=== PATIENT | male | born 1950 | race Caucasian/White ===

== ENCOUNTER 2019-10-26 11:14 | Day surgery (SDC) | payer MEDICARE, OTHER, SELFPAY ==
[2019-10-26] MEDS: SODIUM CHLORIDE 0.9% 1,000 ML 200 ML IV (11:56)
[2019-10-26 11:58] VITALS: BP 165/101; PULSE 101; RESP 16; TEMP 36.2; O2SAT 97; BMI 28.5
--- NOTE | 2019-10-26 12:15 | P.HP_ITS ---
History of Present Illness History of Present Illness Date Patient Seen: 10/26/19 Time Patient Seen: 12:15 Chief complaint: [id number] Narrative: This is a 68-year-old man here for screening colonoscopy. He had a colonoscopy more than 30 years ago, and he is not sure the reason for the colonoscopy that he had. He denies any melena, hematochezia, or unexplained weight loss. He had some right lower quadrant pain about 3 months ago, and his primary doctor recommended some dietary changes, which have resolved his pain. He denies any abdominal pain at this point, her any other gastrointestinal symptoms of concern. He denies any significant family history colon cancer colon polyps, and denies any personal history of significant illness. According to his primary doctor's note he has hypertension, has been prescribed lisinopril, but is not taking it. The node also says that he has hyperlipidemia, but is not on medications. Otherwise, he is overweight with a BMI of 28.5. ROS: Thirteen system review is otherwise negative other than as mentioned below and i n HPI. PE: GENERAL: Well groomed and cooperative. Appears stated age. Answers questions promptly and appropriately. Vital signs noted. HENT: Normocephalic, atraumatic. Hearing intact. Oral mucosa is pink and moist. EYES: Conjunctiva pink, sclera white, no periorbital swelling. CARDIOVASCULAR: Regular rate. No pedal edema. RESPIRATORY: Non-tachypneic, breathing comfortably on room air. GASTROINTESTINAL: Abdomen soft and non-distended; nontender GENITALURINARY: No flank tenderness. MUSCULOSKELETAL: Equal tone and mass bilaterally. SKIN: Warm, dry, soft, appropriate color for ethnicity. No other lesions, rashes, or wounds. NEURO: Alert and Oriented X 3. No gross sensory deficits, or cognitive issues. PSYCH: Appropriate affect and mood. Patient History Family & Social History Social History: household members family Meds Home Medications and Allergies Home Medications Medication Instructions Recorded Confirmed Type aspirin 325 mg PO DAILY 10/26/19 10/26/19 History Allergies Allergy/AdvReac Type Severity Reaction Status Date / Time No Known Drug Allergies Allergy Verified 10/26/19 11:50 Exam Vital Signs (past 8 hours): - 10/26/19 11:58 Temperature 97.1 F L Pulse Rate 101 H Respiratory Rate 16 Blood Pressure 165/101 H Pulse Oximetry 97 Oxygen Delivery Method Room Air Assessment & Plan Assessment and plan (1) Encounter for screening colonoscopy: Current visit: Yes Status: Acute (2) At average risk for colon cancer: Current visit: Yes Status: Acute Assessment & Plan narrative: This is a 68-year-old man with no personal or family history of colon polyps or colon cancers. He denies any melena, hematochezia, unexplained weight loss, or unexplained abdominal pain at this time. Risks and benefits of colonoscopy and polypectomy were discussed including risk of bleeding, perforation, need for additional procedures, risks of anesthesia. The patient desires to proceed with his colonoscopy procedure. Time Spent With Patient Time with patient: 15-24 minutes Quality VTE Deep Vein Thrombosis/Pulmonary Embolism Present on Admission: No
--- NOTE | 2019-10-26 13:20 | PM.OP.ENDO ---
Operative Date/Time/Diagnoses Date of procedure: 10/26/19 Time of procedure: 13:20 Pre-op diagnosis: Average risk for colon cancer Post-op diagnosis: same Procedure & Clinicians Study performed: Screening colonoscopy Same procedure as scheduled: Yes Indications: This is a 68-year-old man with history of colonoscopy over 30 years ago for an unknown region. He is here for screening colonoscopy. Surgeon: Lisset Balderas Procedure Notes SCOAP/Timeout: Performed Procedure in detail: The patient was brought to the room and placed in left lateral decubitus position with all bony prominences padded. A time-out was performed and then the patient was given procedural sedation starting with [4] mg of Versed and [100] mcg of fentanyl. Vitals were monitored throughout the procedure and remained stable. Once adequately sedated the procedure was begun. A rectal exam was performed revealing [no abnormalities]. The colonoscope was then introduced to the rectum and advanced to the cecum in the usual fashion. []The cecum was identified by the appendiceal orifice, the mucosal tri-fold, and the ileocecal valve. The scope was then retracted while rotating side to side and examining each mucosal fold. [Mild diverticulosis was found in the sigmoid colon, with a few scattered small mouthed openings.] At the conclusion of the procedure retroflexion was performed and [small grade 1-2 internal hemorrhoids without stigmata of bleeding were seen]. The scope was then withdrawn from the rectum the procedure was concluded. The patient tolerated the procedure well and was transferred to the PACU in stable condition. Scope withdrawal time: 11 Sedation minutes: 18 Findings: diverticulosis and internal hemorrhoids Specimen(s): none sent Complications: none Impression: Mild diverticulosis, low-grade internal hemorrhoids Post-procedure Recommendations: Colonscopy in 10 years Follow up: as needed Disposition: PACU
[2019-10-26] MEDS: fentaNYL 250 MCG/5 ML INJ IV (13:24)
[2019-10-26] MEDS: MIDAZOLAM 5 MG/5 ML VIAL IV (13:25)
[2019-10-26 13:26] VITALS: BP 139/89; PULSE 82; RESP 16; TEMP 36.6; O2SAT 96
[2019-10-26 13:31] VITALS: BP 120/83; PULSE 89; RESP 14; O2SAT 97
[2019-10-26 13:36] VITALS: BP 123/84; PULSE 82; RESP 21; TEMP 36.4; O2SAT 96
[2019-10-26 14:00] VITALS: BP 145/85; PULSE 78; RESP 20; TEMP 36.6; O2SAT 98
== END 2019-10-26 13:50 | disposition home or self-care (01) ==
PROVIDERS: Visit Provider Surgery
PROC: 0DJD8ZZ Inspection of Lower Intestinal Tract, Via Natural or Artificial Opening Endoscopic (ICD-10-PCS; CPT 45378; principal; 2019-10-26 13:00)
DX: Z12.11 Encounter for screening for malignant neoplasm of colon (principal); K64.0 First degree hemorrhoids; K57.30 Diverticulosis of large intestine without perforation or abscess without bleeding
CPT/HCPCS: G0121; 99152; J2250; J3010

== ENCOUNTER 2020-03-02 22:29 | Emergency (ER) | payer MEDICARE, OTHER, SELFPAY ==
[2020-03-02] MEDS: BUPIVACAINE 0.5% W/ EPI (PF) 30 ML VIAL 5 ML SUBCUT (22:41)
[2020-03-02 22:42] VITALS: BP 183/106; PULSE 87; RESP 15; TEMP 36.6; O2SAT 98; BMI 29.8
[2020-03-02] MEDS: cephALEXin 250 MG PREPACK 1 BOTTLE MISC (22:42)
--- NOTE | 2020-03-02 23:00 | PC.NURSE ---
[address] Richard to L forearm, telfa and gauze dressing applied.
[2020-03-02 23:06] VITALS: BP 166/101; PULSE 93; RESP 16; O2SAT 97
--- NOTE | 2020-03-02 23:07 | ED.WOUNDLAC ---
HPI - Wound/Laceration General Chief Complaint: Wound/Laceration Stated Complaint: cut on left arm/needs stitches Time Seen by Provider: 03/02/20 22:31 Source: patient Mode of arrival: Family Vehicle Limitations: no limitations History of Present Illness HPI narrative: 69-year-old male nonsmoker occasionally drinks and occasionally uses THC presents with a chief complaint of an accidental deep laceration to the dorsal side of his left forearm. He states that he was carrying sheet metal when he lost his balance and fell and it fell on his arm and causes laceration. He cleaned it significantly on-site including Betadine. He has no numbness, tingling or weakness. His tetanus was updated 2 years ago. He denies any head neck or back pain. He is otherwise well and free of complaint Onset (ago): hour(s) Extremity Location: Left: forearm Body four view annotation: 1. Place: home Patient tetanus UTD: Yes Context: accidental Associated symptoms: none Treatments prior to arrival: bandage Related Data Home Medications Medication Instructions Recorded Confirmed aspirin 325 mg PO DAILY 10/26/19 10/26/19 Previous Rx's Medication Instructions Recorded cephalexin [Keflex] 500 mg PO QID 7 Days #28 cap 03/02/20 Allergies Allergy/AdvReac Type Severity Reaction Status Date / Time No Known Drug Allergies Allergy Verified 10/26/19 11:50 Review of Systems Constitutional Constitutional: Denies chills, Denies fatigue, Denies fever(s), Denies frequent falls, Denies lethargy and Denies weakness Eyes Eyes: Denies change in vision, Denies eye discharge, Denies irritation and Denies loss of vision ENT Ears, Nose, Mouth, and Throat: Denies change in voice, Denies dizziness, Denies neck pain, Denies sore throat and Denies throat swelling Cardiovascular Cardiovascular: Denies chest pain, Denies irregular heart rhythm, Denies lightheadedness, Denies palpitations, Denies dyspnea, Denies dyspnea on exertion and Denies orthopnea Respiratory Respiratory: Denies cough, Denies dyspnea, Denies dyspnea on exertion and Denies wheezing Gastrointestinal Gastrointestinal: Denies abdominal pain, Denies change in bowel habits, Denies diarrhea, Denies nausea and Denies vomiting Genitourinary Genitourinary: Denies hematuria, Denies flank pain, Denies urinary incontinence and Denies urinary urgency Musculoskeletal Musculoskeletal: Denies back pain, Denies muscle weakness, Denies neck pain, Denies numbness and Denies tingling Integumentary/Breasts Skin/Breast: Denies pruritus, Denies erythema, Denies rash and Reports wounds Neurologic Neurologic: Denies behavioral changes, Denies confusion, Denies dizziness, Denies frequent falls, Denies loss of vision, Denies numbness, Denies tingling and Denies weakness Psychiatric Psychiatric: Denies anxiety, Denies behavioral changes, Denies confusion, Denies depression, Denies homicidal ideation and Denies suicidal ideation Endocrine Endocrine: Denies fatigue, Denies flushing and Denies palpitations Hematologic/Lymphatic Hematologic/Lymphatic: Denies easy bruising Allergic/Immunologic Allergic/Immunologic: Denies urticaria, Denies throat swelling and Denies wheezing Patient History Social History household members: family alcohol intake frequency: a few times a month Substance Use Type: marijuana Exam Narrative Exam Narrative: GEN: AOx3 and in mild distress EYES: Pupils are equal, round, and reactive to light and accommodation. Extraoccular muscles are intact bilaterally. There is no subconjunctival hemorrhage or exudate. CHEST: Lungs are clear to auscultation bilaterally and free of wheezes, rales, or rhonchi. Heart rate is regular rhythm, there are no murmurs, clicks, rubs, or gallops. There is no chest wall tenderness. ABD: Abdomen is soft and nontender. There is no guarding or rebound. Bowel sounds are normal in all 4 quadrants. There is no mass or organomegaly. EXT: Full painless ROM of all extremities with no loss of sensation or strength. SKIN: 8cm deep laceration without active bleeding, deep structures in tact, no FB on dorsum of L forearm. Second smaller 2cm laceration just proximal. Otherwise warm, pink, and dry. No erythema or rash Initial Vital Signs Initial Vital Signs: Vital Signs Temperature 97.8 F 03/02/20 22:42 Pulse Rate 87 03/02/20 22:42 Respiratory Rate 15 03/02/20 22:42 Blood Pressure 183/106 H 03/02/20 22:42 Pulse Oximetry 98 03/02/20 22:42 Procedures Laceration Repair Laceration 1: Site: upper extremity Side (If applicable): left Size (cm): 8 Description: linear Depth: involves muscle layer Local Anesthetic: bupivacaine 0.25% and with epi Amount of anesthesia used (mL): 8 Pre-repair: wound explored, irrigated extensively and deep structures intact Skin layer closed with: nylon Size (cm): 4-0 Number of sutures: 10 Technique: simple, interrupted Subcutaneous layer closed with: vicryl Size: 4-0 Number of sutures: 3 Technique: simple, interrupted Course Orders Ordered: Discontinued Medications Bupivacaine HCl/Epinephrine Bitart (Sensorcaine 0.5% W/ Epi (Pf)) 5 ml SUBCUT NOW ONE Stop: 03/02/20 22:37 Last Admin: 03/02/20 22:41 Dose: 5 ml Documented by: [email or web address] Cefazolin Sodium (Keflex 250 Mg Prepack) 1 bottle MISC SEEINSTR ONE Stop: 03/02/20 22:37 Last Admin: 03/02/20 22:42 Dose: 1 bottle Documented by: [email or web address] Vital Signs Vital signs: Vital Signs - 8 hr 03/02/20 22:42 03/02/20 23:06 Temperature 97.8 F Pulse Rate 87 93 H Respiratory Rate 15 16 Blood Pressure 183/106 H 166/101 H Pulse Oximetry 98 97 Discharge Plan Departure Patient Disposition: Home Clinical Impression: Laceration of arm, left, complicated Qualifiers: Encounter type: initial encounter Qualified Code(s): S41.112A - Laceration without foreign body of left upper arm, initial encounter Discharge Date/Time: 03/02/20 23:06 Instructions: DI for Laceration Repair -- Complex Activity Restrictions/Additional Instructions: Please keep the wound clean and dry to the best of your ability. Please monitor for signs of infection such as redness to the skin or increasing pain. Have the sutures removed by your doctor in about 7 days. If you are unable to get into your doctor, we would be happy to remove the sutures in that same timeframe. Prescriptions: New cephalexin [Keflex] 500 mg capsule 500 mg PO QID 7 Days Qty: 28 RF: 0 No Action aspirin 325 mg Tablet 325 mg PO DAILY RF: 0 Referrals: Mayur Hall MD [Primary Care Provider] -
== END 2020-03-02 23:06 | disposition home or self-care (01) ==
PROVIDERS: Emergency Provider Emergency Medicine; PCP Family Medicine
DX: S41.112A Laceration without foreign body of left upper arm, initial encounter (principal); W26.8XXA Contact with other sharp object(s), not elsewhere classified, initial encounter
CPT/HCPCS: 13121; 13122; 99281; 99283

== ENCOUNTER 2023-01-24 14:29 | Emergency (ER) | payer MEDICARE, OTHER, SELFPAY ==
[2023-01-24 14:54] VITALS: BP 176/100; PULSE 94; RESP 18; TEMP 36.9; O2SAT 96; BMI 31.1
[2023-01-24 15:19] LABS: Add Manual Diff / Slide Review NO; Basophils Absolute Auto 0 /uL (0-100); Basophils Percent Auto 0.3 % (0-2); Eosinophils Absolute Auto 100 /uL (0-450); Eosinophils Percent Auto 0.4 % (2-4); Hematocrit 43.6 % (41-53); Lymphocytes Absolute Auto 1700 /uL (1100-4500); Lymphocytes Percent Auto 13.4 % (25-40); Mean Corpuscular HGB Conc 34.3 % (30-36); Mean Corpuscular Hemoglobin 31.4 PG (26-34); Mean Corpuscular Volume 91.4 fL (80-100); Monocytes Absolute Auto 900 /uL (0-900); Monocytes Percent Auto 7.2 % (3-14); Neutrophils Absolute Auto 9900 /uL (1500-7000); Neutrophils Percent Auto 78.7 % (50-75); Platelet Count 322 X10^3/uL (150-400); Red Blood Cell Count 4.77 X10^6/uL (4.5-5.9); Red Cell Distribution Width 13.5 % (11.6-14.8); White Blood Cell Count 12.6 X10^3/uL (4.5-11.0)
[2023-01-24 15:33] LABS: Alanine Aminotransferase 23 IU/L (<50); Albumin 4.3 g/dL (3.5-5.0); Albumin Globulin Ratio 1.2 (1.0-2.8); Alkaline Phosphatase 77 U/L (38-126); Aspartate Aminotransferase 22 IU/L (17-59); BUN Creatinine Ratio 16.7 (6-22); Bilirubin Total 0.4 mg/dL (0.2-1.3); Blood Urea Nitrogen 11 mg/dL (9-20); Calcium 8.9 mg/dL (8.4-10.2); Carbon Dioxide 24 mmol/L (22-32); Chloride 99 mmol/L (98-107); Estimated Glomerular Filt Rate > 60 mL/min (>60); Globulin 3.5 g/dL (1.7-4.1); Glucose 107 mg/dL (80-110); HEMOLYSIS < 15 (0-50); Lipase 233 U/L (23-300); Potassium 4.1 mmol/L (3.4-5.1); Sodium 134 mmol/L (137-145); Total Protein 7.8 g/dL (6.3-8.2)
--- NOTE | 2023-01-24 16:28 | DI.CT.S_ITS ---
PROCEDURE: CT KIDNEY URETER BLADDER (KUB) INDICATIONS: lumbar Radiculopathy vs nephrolith, hx diskectomy L4-L5 TECHNIQUE: Axial sections were acquired from the lung bases to the pubic symphysis. Coronal and sagittal reformats were performed. For radiation dose reduction, the following was used: automated exposure control, adjustment of mA and/or kV according to patient size. COMPARISON: None. FINDINGS: Image quality: Excellent. Lung bases: Unremarkable. Heart: No significant findings. URINARY: Right Kidney: No stones or hydronephrosis. Right Ureter: No hydroureter. Left Kidney: No stones or hydronephrosis. Left Ureter: No hydroureter. Bladder: Bladder is distended. Normal wall thickness. No stones. Prostate is enlarged. ABDOMEN: Liver: There are several indeterminate hepatic hypodensities. Gallbladder: Unremarkable. Biliary ducts: Unremarkable. Pancreas: Unremarkable. Spleen: Unremarkable. Adrenal Glands: Unremarkable. Stomach and Bowel: Stomach, small bowel loops, and colon are normal in caliber. Diverticulosis without acute diverticulitis. Normal appendix. Peritoneum: No abnormal intraperitoneal fluid. No free air. Ventral Wall: Tiny fat containing umbilical hernia. Abdominal Nodes: No enlarged retroperitoneal or mesenteric lymph nodes. Vessels: Aorta and inferior vena cava are normal in size. PELVIS: Pelvic Organs: Unremarkable. Pelvic Nodes: Unremarkable. Miscellaneous: Fat containing inguinal hernias are seen. Bones: No fractures. There is degenerative disc disease, moderate at L4-L5, and mild at other levels. Moderate facet arthropathy at L5-S1 on the left. IMPRESSION: 1. No renal stone or hydronephrosis. 2. Bladder is distended. 3. Prostate is enlarged. 4. Diverticulosis without diverticulitis. 5. Degenerative disc and facet disease in lumbar spine. 6. Multiple indeterminate hepatic hypodensities are most likely cysts. Consider ultrasound follow-up. 7. Fat containing inguinal hernias bilaterally. Dictated by: Karmen Constantino M.D. on 01/24/2023 at 16:54 Approved by: Karmen Constantino M.D. on 01/24/2023 at 16:58
--- NOTE | 2023-01-24 16:31 | ED.MALEGU ---
HPI - Male Genitourinary <JOSE Johnson - Last Filed: 01/24/23 17:12> General Chief complaint: Urogenital-Male Stated complaint: pain in kidney area getting worse Time Seen by Provider: 01/24/23 15:59 Source: patient Mode of arrival: Ambulatory History of Present Illness HPI Narrative: 72-year-old male who presents to the emergency department complaining left low back pain above his left iliac crest, states it feels like prior radiculopathy but worse. Is concerned about his kidney. Denies any urinary urgency, retention or incontinence. 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 He states he is not had any radiculopathy symptoms before. Endorses drinking approximately 3 beers a day. He is a nonsmoker and occasionally uses marijuana. Denies any fevers, chills, nausea vomiting, bowel changes. States he is not had a bowel movement today but denies any groin paresthesia. He denies any weakness, denies any sensation changes. Related Data Home Medications Medication Instructions Recorded Confirmed aspirin 325 mg tablet 325 mg PO DAILY 10/26/19 10/26/19 Previous Rx's Medication Instructions Recorded hydrocodone 5 mg-acetaminophen 325 1 tab PO TID PRN pain #10 tabs 01/24/23 mg tablet lidocaine 5 % topical patch 1 patch topical DAILY PRN pain #30 01/24/23 (Lidoderm) ea methocarbamol 750 mg tablet 750 mg PO Q8H PRN spasms #20 tabs 01/24/23 prednisone 20 mg tablet 20 mg PO DAILY 4 days #4 tabs 01/24/23 Allergies Allergy/AdvReac Type Severity Reaction Status Date / Time Jcgbiyd-AAL-YnR Reductase Allergy Hives Verified 01/24/23 15:01 Inhibitor Review of Systems <JOSE Johnson - Last Filed: 01/24/23 17:12> Review of Systems ROS Unobtainable: All systems reviewed & are unremarkable except as noted in HPI and below Patient History <JOSE Johnson - Last Filed: 01/24/23 17:12> Social History household members: family Smoking Status: Never smoker Smoking Status: Never smoker alcohol intake frequency: 3 or more drinks per day Alcohol type: beer Substance Use Type: marijuana Exam <JOSE Johnson - Last Filed: 01/24/23 17:12> Narrative Exam Narrative: Reviewed vitals signs and nursing notes. General: Pleasant, sitting upright, in no acute distress, well groomed, afebrile HEENT: symmetrical facial expressions, moist mucous membranes, neck is supple CV: regular rate and rhythm, warm extremities Respiratory: normal work of breathing, without tachypnea or hypoxia. GI: abdomen soft, nondistended, without CVA tenderness bilaterally. MSK: moves all extremities, no weakness, normal tone, ambulatory without deficit, patient complains of pain to his left lower lumbar musculature just above his iliac crest, nontender to palpation, this is most likely radiculopathy, no CVA tenderness bilaterally, no suprapubic tenderness, patient has rectal tone, is having muscle spasms occasionally. Skin: brisk capillary refill, without rash or wound Neuro: normal speech and cognition, A&O x3 Initial Vital Signs Initial Vital Signs: Vital Signs Temperature 98.5 F 01/24/23 14:54 Pulse Rate 94 H 01/24/23 14:54 Respiratory Rate 18 01/24/23 14:54 Blood Pressure 176/100 H 01/24/23 14:54 Pulse Oximetry 96 01/24/23 14:54 Oxygen Delivery Method Room Air 01/24/23 14:54 GI Other: Abdomen is soft, nontender to palpation, distended but at baseline, without CVA tenderness bilaterally, no suprapubic tenderness, no radiation of the pain, Back/Spine/Pelvis Other: BACK: captain cannery tender but free of any obvious external abnormalities. Patient exam notes decreased range of motion and muscle spasm, but no CVA tenderness, or vertebral point tenderness. There are no symptoms of cauda equina such as saddle anesthesia, and decreased reflexes, decreased sensation or strength. Midline lumbar spine is nontender to palpation <Chin Mcleod DO - Last Filed: 01/24/23 16:54> Initial Vital Signs Initial Vital Signs: Vital Signs Temperature 98.5 F 01/24/23 14:54 Pulse Rate 94 H 01/24/23 14:54 Respiratory Rate 18 01/24/23 14:54 Blood Pressure 176/100 H 01/24/23 14:54 Pulse Oximetry 96 01/24/23 14:54 Oxygen Delivery Method Room Air 01/24/23 14:54 Course <JOSE Johnson - Last Filed: 01/24/23 17:12> Orders Ordered: ED Orders 01/24/23 15:05 Complete Blood Count AUTO DIFF Stat Comprehensive Metabolic Panel Stat Lipase Stat 01/24/23 15:48 EKG-12 Lead Stat 01/24/23 16:00 Urine Microscopic Stat 01/24/23 16:28 CT kidney ureter bladder (KUB) Stat 01/24/23 17:00 Urine Culture Stat Discontinued Medications Hydrocodone Bitart/Acetaminophen (Hydrocodone/Acet 5/325 Tablet) 1 tab PO NOW ONE Stop: 01/24/23 16:31 Hydrocodone Bitart/Acetaminophen (Hydrocodone/Acet 5/325 Prepack) 1 bottle MISC SEEINSTR ONE Stop: 01/24/23 17:10 Cyclobenzaprine HCl (Cyclobenzaprine 10 Mg Prepack) 1 bottle MISC SEEINSTR ONE Stop: 01/24/23 17:10 Ketorolac Tromethamine (Ketorolac 30 Mg/Ml Vial) 30 mg IM NOW ONE Stop: 01/24/23 16:31 Lidocaine (Lidocaine Patch 1 Each Adh..Patch) 1 each TOP NOW ONE Stop: 01/24/23 16:31 Methocarbamol (Methocarbamol 500 Mg Tablet) 750 mg PO NOW ONE Stop: 01/24/23 16:31 Prednisone (Prednisone 20 Mg Tablet) 20 mg PO NOW ONE Stop: 01/24/23 16:31 Vital Signs Vital signs: Vital Signs - 8 hr 01/24/23 14:54 Temperature 98.5 F Pulse Rate 94 H Respiratory Rate 18 Blood Pressure 176/100 H Pulse Oximetry 96 Oxygen Delivery Method Room Air <Chin Mcleod DO - Last Filed: 01/24/23 16:54> Orders Ordered: ED Orders 01/24/23 15:05 Complete Blood Count AUTO DIFF Stat Comprehensive Metabolic Panel Stat Lipase Stat 01/24/23 15:48 EKG-12 Lead Stat 01/24/23 16:00 Urine Microscopic Stat 01/24/23 16:28 CT kidney ureter bladder (KUB) Stat 01/24/23 17:00 Urine Culture Stat Discontinued Medications Hydrocodone Bitart/Acetaminophen (Hydrocodone/Acet 5/325 Tablet) 1 tab PO NOW ONE Stop: 01/24/23 16:31 Hydrocodone Bitart/Acetaminophen (Hydrocodone/Acet 5/325 Prepack) 1 bottle MISC SEEINSTR ONE Stop: 01/24/23 17:10 Cyclobenzaprine HCl (Cyclobenzaprine 10 Mg Prepack) 1 bottle MISC SEEINSTR ONE Stop: 01/24/23 17:10 Ketorolac Tromethamine (Ketorolac 30 Mg/Ml Vial) 30 mg IM NOW ONE Stop: 01/24/23 16:31 Lidocaine (Lidocaine Patch 1 Each Adh..Patch) 1 each TOP NOW ONE Stop: 01/24/23 16:31 Methocarbamol (Methocarbamol 500 Mg Tablet) 750 mg PO NOW ONE Stop: 01/24/23 16:31 Prednisone (Prednisone 20 Mg Tablet) 20 mg PO NOW ONE Stop: 01/24/23 16:31 Vital Signs Vital signs: Vital Signs - 8 hr 01/24/23 14:54 Temperature 98.5 F Pulse Rate 94 H Respiratory Rate 18 Blood Pressure 176/100 H Pulse Oximetry 96 Oxygen Delivery Method Room Air MDM - Male Genitourinary <Nikky Trevizo KENO MANAGER - Last Filed: 01/24/23 17:12> Lab Data 01/24/23 15:05 01/24/23 15:05 Labs: Lab Results 01/24/23 01/24/23 Range/Units 15:05 15:05 WBC 12.6 H (4.5-11.0) X10^3/uL RBC 4.77 (4.5-5.9) X10^6/uL Hgb 15.0 (13.5-17.5) g/dL Hct 43.6 (41-53) % MCV 91.4 (80-100) fL MCH 31.4 (26-34) PG MCHC 34.3 (30-36) % RDW 13.5 (11.6-14.8) % Plt Count 322 (150-400) X10^3/uL Neut % (Auto) 78.7 H (50-75) % Lymph % (Auto) 13.4 L (25-40) % [place] % (Auto) 7.2 (3-14) % Eos % (Auto) 0.4 L (2-4) % Baso % (Auto) 0.3 (0-2) % Neut # (Auto) 9900 H (6394-1826) /uL Lymph # (Auto) 1700 (3369-9881) /uL [place] # (Auto) 900 (0-900) /uL Eos # (Auto) 100 (0-450) /uL Baso # (Auto) 0 (0-100) /uL Sodium 134 L (137-145) mmol/L Potassium 4.1 (3.4-5.1) mmol/L Chloride 99 (98-107) mmol/L Carbon Dioxide 24 (22-32) mmol/L BUN 11 (9-20) mg/dL Creatinine 0.66 (0.66-1.25) mg/dL Estimated GFR > 60 (>60) mL/min BUN/Creatinine Ratio 16.7 (6-22) Glucose 107 (80-110) mg/dL Calcium 8.9 (8.4-10.2) mg/dL Total Bilirubin 0.4 (0.2-1.3) mg/dL AST 22 (17-59) IU/L ALT 23 (<50) IU/L Alkaline Phosphatase 77 (38-126) U/L Total Protein 7.8 (6.3-8.2) g/dL Albumin 4.3 (3.5-5.0) g/dL Globulin 3.5 (1.7-4.1) g/dL Albumin/Globulin Ratio 1.2 (1.0-2.8) Lipase 233 (23-300) U/L Urine Dip Bedside Urine Glucose Negative Bedside Urine Bilirubin - Negative Bedside Urine Ketone +/- 5 Urine Specific [place] 1.010 Bedside Urine Occult Blood - Negative Bedside Urine pH 6.0 Bedside Urine Protein - Negative Bedside Urine Urobilinogen +/- 1mg Bedside Urine Nitrite - Negative Bedside Urine Leukocytes - Negative Esterase Imaging Data CT scan - abdomen/pelvis: Radiologist's Impression: PROCEDURE:? CT KIDNEY URETER BLADDER (KUB) ? INDICATIONS:? lumbar Radiculopathy vs nephrolith, hx diskectomy L4-L5 ? TECHNIQUE:? Axial sections were acquired from the lung bases to the pubic symphysis.? Coronal and sagittal reformats were performed.? For radiation dose reduction, the following was used: ?automated exposure control, adjustment of mA and/or kV according to patient size.? ? COMPARISON:? None. ? FINDINGS:? Image quality:? Excellent.? ? Lung bases:? Unremarkable.? ? Heart:? No significant findings. ? URINARY: Right Kidney: ? No stones or hydronephrosis.? Right Ureter:? No hydroureter.? ? Left Kidney: ? No stones or hydronephrosis. Left Ureter:? No hydroureter.? ? Bladder:? Bladder is distended.? Normal wall thickness. No stones.? Prostate is enlarged. ? ABDOMEN: Liver:? There are several indeterminate hepatic hypodensities.? ? Gallbladder:? Unremarkable.? ? Biliary ducts:? Unremarkable.? ? Pancreas:? Unremarkable.? ? Spleen:? Unremarkable.? ? Adrenal Glands:? Unremarkable.? ? ? Stomach and Bowel:? Stomach, small bowel loops, and colon are normal in caliber.? Diverticulosis without acute diverticulitis.? Normal appendix. Peritoneum:? No abnormal intraperitoneal fluid.? No free air.? ? Ventral Wall: ? Tiny fat containing umbilical hernia.? Abdominal Nodes:? No enlarged retroperitoneal or mesenteric lymph nodes.? Vessels:? Aorta and inferior vena cava are normal in size.? ? PELVIS: Pelvic Organs:? Unremarkable.? ? Pelvic Nodes: Unremarkable. Miscellaneous:? Fat containing inguinal hernias are seen. ? ? ? Bones:? No fractures.? There is degenerative disc disease, moderate at L4-L5, and mild at other levels.? Moderate facet arthropathy at L5-S1 on the left. ? IMPRESSION:? ? 1. No renal stone or hydronephrosis. 2. Bladder is distended.? 3. Prostate is enlarged. 4. Diverticulosis without diverticulitis. 5. Degenerative disc and facet disease in lumbar spine. 6. Multiple indeterminate hepatic hypodensities are most likely cysts.? Consider ultrasound follow-up. 7. Fat containing inguinal hernias bilaterally.? Dictated by: Karmen Constantino M.D. on 01/24/2023 at 16:54 ? ? Approved by: Karmen Constantino M.D. on 01/24/2023 at 16:58 ? MDM Narrative Medical decision making narrative: Chief Complaint: Low back pain, concern for kidney pain Multiple etiologies for patient's symptoms considered including, but not limited to: Lumbar radiculopathy, nephrolithiasis, pyelonephritis, urinary retention, cauda equina, nerve compression syndrome, I have independently reviewed the patient's vital signs and nursing notes as well as prior records if available. Pertinent records include: Pertinent lab findings reviewed: UA negative for abnormality, mild leukocytosis of 12.6, hemoconcentration, left shift, no electrolyte abnormalities, normal creatinine and GFR, lipase is normal, normal transaminases and liver enzymes. Pertinent Imaging reviewed: CT KUB with bone windows show degenerative joint disease and facet disease of his lumbar spine without acute abnormality, no nephrolithiasis or pyelonephritis only abnormal finding for patient was enlarged prostate but he does urinary retention as he was able to fully void his distended bladder after CT. Course of care: Patient's pain was treated with lidocaine patch, Toradol, hydrocodone, prednisone and methocarbamol [address] Patient's pain was treated with hydrocodone, Toradol, lidocaine patch and methocarbamol with prednisone. He understands that this is most likely lumbar radiculopathy and states playing some point in his time. He will follow-up with his PCP and or manufacture specialist as needed, I gave him contact information for spinal living specialist here in [place]. He lives on [facility], was given pain control for the weekend encouraged to follow-up with his primary care provider. Who is can course of methocarbamol, lidocaine patches, hydrocodone, prednisone. Social considerations that may affect disposition: none Questions are addressed and there is agreement with the plan and for follow-up. Patient is appropriate for outpatient management. <Chin Mcleod, DO - Last Filed: 01/24/23 16:54> Lab Data Labs: Lab Results 01/24/23 01/24/23 Range/Units 15:05 15:05 WBC 12.6 H (4.5-11.0) X10^3/uL RBC 4.77 (4.5-5.9) X10^6/uL Hgb 15.0 (13.5-17.5) g/dL Hct 43.6 (41-53) % MCV 91.4 (80-100) fL MCH 31.4 (26-34) PG MCHC 34.3 (30-36) % RDW 13.5 (11.6-14.8) % Plt Count 322 (150-400) X10^3/uL Neut % (Auto) 78.7 H (50-75) % Lymph % (Auto) 13.4 L (25-40) % [place] % (Auto) 7.2 (3-14) % Eos % (Auto) 0.4 L (2-4) % Baso % (Auto) 0.3 (0-2) % Neut # (Auto) 9900 H (9864-1507) /uL Lymph # (Auto) 1700 (0764-9001) /uL [place] # (Auto) 900 (0-900) /uL Eos # (Auto) 100 (0-450) /uL Baso # (Auto) 0 (0-100) /uL Sodium 134 L (137-145) mmol/L Potassium 4.1 (3.4-5.1) mmol/L Chloride 99 (98-107) mmol/L Carbon Dioxide 24 (22-32) mmol/L BUN 11 (9-20) mg/dL Creatinine 0.66 (0.66-1.25) mg/dL Estimated GFR > 60 (>60) mL/min BUN/Creatinine Ratio 16.7 (6-22) Glucose 107 (80-110) mg/dL Calcium 8.9 (8.4-10.2) mg/dL Total Bilirubin 0.4 (0.2-1.3) mg/dL AST 22 (17-59) IU/L ALT 23 (<50) IU/L Alkaline Phosphatase 77 (38-126) U/L Total Protein 7.8 (6.3-8.2) g/dL Albumin 4.3 (3.5-5.0) g/dL Globulin 3.5 (1.7-4.1) g/dL Albumin/Globulin Ratio 1.2 (1.0-2.8) Lipase 233 (23-300) U/L Urine Dip Bedside Urine Glucose Negative Bedside Urine Bilirubin - Negative Bedside Urine Ketone +/- 5 Urine Specific [place] 1.010 Bedside Urine Occult Blood - Negative Bedside Urine pH 6.0 Bedside Urine Protein - Negative Bedside Urine Urobilinogen +/- 1mg Bedside Urine Nitrite - Negative Bedside Urine Leukocytes - Negative Esterase Discharge Plan Departure Patient Disposition: Home Clinical Impression: Acute lumbar radiculopathy, Degenerative disc disease, lumbar, Enlarged prostate, Facet joint disease of lumbosacral region Instructions: Lumbar Radiculopathy Activity Restrictions/Additional Instructions: *You have been diagnosed with lumbar radiculopathy which is nerve pain from your low back and going to your hip. You do have degenerative joint disease but no acute findings of anything dangerous in your spine. This is good, should calm down. Please continue with ibuprofen every 8 hours with food and water, a pain pill, lidocaine patch, muscle relaxer and daily for the next 4 days. I sent all these medications to [facility]. Please use the medications I have sent home with you to get through tonight, pear picker your medicines tomorrow. I hope you feel better soon, it was a pleasure to meet you both, return for new or worsening symptoms. *What to do: *Please continue to take your regular medications as directed. [x ] New medication prescriptions sent to your pharmacy: [[facility] ] [ ] New medication written as a paper prescription [ ] No new medications given *Please follow up with your primary care provider in 2-3 days, call for an appointment. Let them know you were seen in the Emergency Department and that we asked that you be seen for follow-up. We will electronically transmit a record of today's note if your PCP is in our system *If you do not have a primary care provider please contact [phone] to establish care with one of [facility] primary care providers. *Return to Emergency Department if you should have any new, worsening, or concerning symptoms, such as [fever greater than 101F, chills, worsening pain, persistent vomiting or other bothersome symptoms]. Prescriptions: New methocarbamol 750 mg tablet 750 mg PO Q8H PRN (Reason: spasms) Qty: 20 0RF lidocaine [Lidoderm] 5 % adhesive patch,medicated 1 patch topical DAILY PRN (Reason: pain) Qty: 30 0RF Rx Instructions: leave on most painful area for up to 12 hrs prednisone 20 mg tablet 20 mg PO DAILY 4 Days Qty: 4 0RF hydrocodone-acetaminophen 5-325 mg tablet 1 tab PO TID PRN (Reason: pain) Qty: 10 0RF No Action aspirin 325 mg Tablet 325 mg PO DAILY Referrals: Curry Zayas MD [Physician] - Miscellaneous,MD Karrie [Primary Care Provider] - Stand Alone Forms: Patient Portal/API <Chin Mcleod DO - Last Filed: 01/24/23 16:54> Cosign ED Attending Cosignature Attestation: Dr Mcleod Co-Sign Statement: I was available for consultation during this patient's emergency department visit. This chart is signed by myself for administrative purposes only. I did not have direct contact with this patient during this visit. They were seen independently by the APC.
[2023-01-24] MEDS: methocarbamoL 500 MG TABLET 750 MG PO (17:11)
[2023-01-24] MEDS: predniSONE 20 MG TABLET PO (17:12)
[2023-01-24] MEDS: HYDROCODONE/ACET 5/325 TABLET 1 TAB PO (17:12)
[2023-01-24] MEDS: KETOROLAC 30 MG/ML VIAL IM (17:30)
[2023-01-24] MEDS: LIDOCAINE PATCH 1 EACH ADH..PATCH TOP (17:32)
[2023-01-24] MEDS: TAMSULOSIN 0.4 MG CAPSULE PO (17:33)
[2023-01-24] MEDS: HYDROCODONE/ACET 5/325 PREPACK 1 BOTTLE MISC (17:34)
[2023-01-24] MEDS: CYCLOBENZAPRINE 10 MG PREPACK 1 BOTTLE MISC (17:35)
[2023-01-24 17:45] VITALS: BP 145/76; PULSE 77; RESP 17; O2SAT 98
[2023-01-24 18:53] LABS: Bacteria Urine None Seen; Culture Indicated Urine Cult Not Indicated; RBC Urine None Seen (0-5/HPF); WBC Urine None Seen (0-5/HPF)
== END 2023-01-24 17:56 | disposition home or self-care (01) ==
PROVIDERS: Emergency Medicine; Emergency Provider Nurse Practitioner Critical Care Medicine
DX: M54.16 Radiculopathy, lumbar region (principal); M51.36 Other intervertebral disc degeneration, lumbar region; N40.0 Benign prostatic hyperplasia without lower urinary tract symptoms; M47.817 Spondylosis without myelopathy or radiculopathy, lumbosacral region; R10.9 Unspecified abdominal pain
CPT/HCPCS: 36415; 51798; 74176; 80053; 81003; 81015; 83690; 85025; 87086; 93005; 93010; 96372; 99284; J1885

== ENCOUNTER → 2023-02-11 10:46 | Outpatient (CLI) | payer MEDICARE, OTHER, SELFPAY ==
[2023-02-11 19:19] LABS: Add Manual Diff / Slide Review NO; Basophils Absolute Auto 0 /uL (0-100); Basophils Percent Auto 0.7 % (0-2); Eosinophils Absolute Auto 200 /uL (0-450); Eosinophils Percent Auto 3.7 % (2-4); Hematocrit 41.6 % (41-53); Lymphocytes Absolute Auto 1800 /uL (1100-4500); Lymphocytes Percent Auto 28.6 % (25-40); Mean Corpuscular HGB Conc 33.7 % (30-36); Mean Corpuscular Hemoglobin 31.1 PG (26-34); Mean Corpuscular Volume 92.4 fL (80-100); Monocytes Absolute Auto 900 /uL (0-900); Monocytes Percent Auto 13.7 % (3-14); Neutrophils Absolute Auto 3400 /uL (1500-7000); Neutrophils Percent Auto 53.3 % (50-75); Platelet Count 304 X10^3/uL (150-400); Red Cell Distribution Width 13.1 % (11.6-14.8); White Blood Cell Count 6.3 X10^3/uL (4.5-11.0)
[2023-02-11 19:42] LABS: Alanine Aminotransferase 23 IU/L (<50); Albumin 4.1 g/dL (3.5-5.0); Albumin Globulin Ratio 1.4 (1.0-2.8); Alkaline Phosphatase 83 U/L (38-126); Aspartate Aminotransferase 21 IU/L (17-59); BUN Creatinine Ratio 11.1 (6-22); Bilirubin Total 0.5 mg/dL (0.2-1.3); Blood Urea Nitrogen 8 mg/dL (9-20); Calcium 9.1 mg/dL (8.4-10.2); Carbon Dioxide 30 mmol/L (22-32); Chloride 100 mmol/L (98-107); Estimated Glomerular Filt Rate > 60 mL/min (>60); Glucose 103 mg/dL (80-110); HEMOLYSIS < 15 (0-50); Potassium 4.3 mmol/L (3.4-5.1); Sodium 136 mmol/L (137-145); Total Protein 7.1 g/dL (6.3-8.2)
[2023-02-11 20:00] LABS: Prostate Specific Antigen Scrn 1.52 ng/mL (0.1-4.0)
== END ==
PROVIDERS: PCP Physician Assistant; Visit Provider Physician Assistant
DX: R10.9 Unspecified abdominal pain (principal); Z12.5 Encounter for screening for malignant neoplasm of prostate; R79.89 Other specified abnormal findings of blood chemistry; I10 Essential (primary) hypertension; N40.0 Benign prostatic hyperplasia without lower urinary tract symptoms
CPT/HCPCS: 80053; 85025; G0103

== ENCOUNTER → 2023-02-21 12:07 | Outpatient (CLI) | payer MEDICARE, OTHER, SELFPAY ==
--- NOTE | 2023-02-21 12:08 | DI.US.S_ITS ---
PROCEDURE: US ABDOMEN LIMITED INDICATIONS: FOLLOW UP ABNORMAL CT. FURTHER INVESTGATE LIVER HYPODENSITY TECHNIQUE: Real-time scanning was performed of the abdominal and retroperitoneal organs, with image documentation. COMPARISON: None. FINDINGS: Liver: Liver is enlarged with diffusely increased liver parenchymal echotexture. Multiple anechoic structures are seen scattered in liver parenchyma measures up to 9 x 7 x 10 mm in size in right hepatic lobe and up to 9 mm in size in left hepatic lobe. Gallbladder: There is no gallstone. No gallbladder wall thickening or pericholecystic fluid. No sonographic Ng sign. Biliary ducts: Intrahepatic bile ducts are non-dilated. Extrahepatic bile duct caliber measures 3.9 mm. Normal is 6-7 mm or less in diameter, or 10 mm or less post-cholecystectomy. Pancreas: Visualized portions of the pancreas are sonographically normal. IMPRESSION: 1. Hepatomegaly and hepatic stay area ptosis. Suggestion of multiple small hepatic cysts as described above. No solid appearing hepatic lesion. 2. Normal appearing gallbladder. No biliary ductal dilatation. Normal appearing visualized portion of pancreas. Dictated by: Antonio Francis M.D. on 02/21/2023 at 13:35 Approved by: Antonio Francis M.D. on 02/21/2023 at 13:37
== END ==
PROVIDERS: PCP Physician Assistant; Referring Provider Physician Assistant; Visit Provider Physician Assistant
DX: R93.5 Abnormal findings on diagnostic imaging of other abdominal regions, including retroperitoneum (principal); K76.0 Fatty (change of) liver, not elsewhere classified
CPT/HCPCS: 76705

== ENCOUNTER → 2023-04-17 11:46 | Outpatient (CLI) | payer MEDICARE, OTHER, SELFPAY ==
[2023-04-17 13:01] LABS: Prostate Specific Antigen Scrn 1.46 ng/mL (0.1-4.0)
== END ==
PROVIDERS: PCP Physician Assistant; Referring Provider Urology; Visit Provider Urology
DX: Z12.5 Encounter for screening for malignant neoplasm of prostate (principal); N40.1 Benign prostatic hyperplasia with lower urinary tract symptoms; R39.9 Unspecified symptoms and signs involving the genitourinary system; R35.1 Nocturia; R33.9 Retention of urine, unspecified; R30.0 Dysuria; Z87.891 Personal history of nicotine dependence
CPT/HCPCS: 36415; 51798; 81002; 99214; G0103

== ENCOUNTER 2023-06-03 12:39 | Day surgery (SDC) | payer MEDICARE, OTHER, SELFPAY ==
[2023-05-22 14:59] VITALS: BMI 28.8
[2023-06-03 13:11] VITALS: BP 131/73; PULSE 77; RESP 17; TEMP 36.4; O2SAT 97; BMI 29.1
[2023-06-03] MEDS: LACTATED RINGERS 1,000 ML 42 ML IV (13:26)
--- NOTE | 2023-06-03 13:26 | PM.PREOP ---
Pre-operative Note COVID-19 COVID-19 status: Not tested Interval Note History & Physical reviewed/Exam performed by Physician: Yes Changes to H&P: No ASA Class (for procedural sedation): II
[2023-06-03] MEDS: CEFAZOLIN 2 GM/100 ML PREMIX 100 ML IV (14:15)
--- NOTE | 2023-06-03 14:32 | SUR.OPER ---
Supine on padded OR bed, head on pillow, arms secured on padded arm boards at <90 degrees abduction, legs uncrossed, safety belt at thigh, tape over blanket over lower legs.
[2023-06-03] MEDS: BUPIVACAINE 0.5% (PF) 30 ML, EPINEPHrine 0.15 MG INJ (14:35)
--- NOTE | 2023-06-03 15:27 | P.OP_ITS ---
Operative Date/Time/Diagnoses Date of procedure: 06/03/23 Time of procedure: 15:27 Pre-op diagnosis: Right inguinal hernia Post-op diagnosis: same Procedure & Clinicians Procedure: Open right inguinal hernia repair with mesh Same procedure as scheduled: Yes Surgeon: Naga Rascon Anesthesia Type: General Operative Notes Procedure in detail: Preoperative antibiotic was administered. The patient was brought to the operating room and placed on the table in supine position general anesthesia was induced. The right groin was prepped and draped in the normal fashion and a time-out was performed. Roughly 10 mL of local anesthetic were injected into the skin and subcutaneous adipose tissue over the right groin. A 6 cm incision was made over the right inguinal canal. Dissection was carried down through the subcutaneous adipose tissue. We exposed the external oblique aponeurosis in the direction of the fibers. Additional local was injected deep to the aponeurosis. A 15 blade scalpel was used to reg the external oblique aponeurosis. Metzenbaum scissors were used to carefully open the aponeurosis in the direction of the fibers taking care not to injure the underlying ilioinguinal nerve which was well seen and protected. We completely exposed the inguinal canal. The cord was dissected free from the inguinal ligament and floor of the inguinal canal and the external oblique aponeurosis was dissected off of the internal oblique taking care not to injure the hypogastric nerve. We encircled the cord with a [place] drain for retraction. There was a an indirect defect along with a cord lipoma that was removed. Sac was dissected off the cord structures and reduced into the abdomen. We then placed a polypropylene mesh against the floor of the inguinal canal. The mesh was secured with multiple interrupted 3-0 Prolene sutures to the pubic tubercle and shelving edge of the inguinal ligament as well as to the conjoint tendon medially. We overlapped the tails to recreate an internal ring and secured the medial tail to the inguinal ligament with additional sutures. We injected some more local into the fatty tissue in the inguinal canal and cord. Finally, we removed the [place]gie drain and closed the external oblique fascia with a running 3-0 Vicryl suture. Skin was closed with interrupted 3-0 Vicryl dermal sutures and a running 4 Monocryl subcuticular stitch. EBL 5 mL The patient was awakened and brought to recovery room. Post-operative Condition: stable Disposition: PACU
[2023-06-03 15:33] VITALS: BP 148/86; PULSE 84; RESP 12; TEMP 36.7; O2SAT 99
[2023-06-03 15:37] VITALS: BP 135/78; PULSE 84; RESP 15; TEMP 36.7; O2SAT 97
[2023-06-03 15:44] VITALS: BP 132/79; PULSE 81; RESP 16; O2SAT 99
--- NOTE | 2023-06-03 15:51 | SUR.PHASEII ---
per MD patient needs to void before DC. Called and upated daughter Carmenza re: voiding.
== END 2023-06-03 16:37 | disposition home or self-care (01) ==
PROVIDERS: PCP Physician Assistant; Referring Provider Surgery; Visit Provider Surgery
PROC: (CPT 49505; principal; 2023-06-03 14:30)
DX: K40.90 Unilateral inguinal hernia, without obstruction or gangrene, not specified as recurrent (principal); D17.6 Benign lipomatous neoplasm of spermatic cord
CPT/HCPCS: 49505; J0171; J0690; J1100; J2250; J2405; J3010